=== PATIENT | female | born 1945 | race Hispanic/Latino ===

== ENCOUNTER 2019-01-06 10:16 | Emergency (ER) | payer MEDICARE ==
[2019-01-06 11:02] LABS: RAPID GROUP A STREP NEGATIVE (NEGATIVE)
== END 2019-01-06 11:31 | disposition home or self-care (01) ==
LOC: EDH 10:16
DX: J02.9 Acute pharyngitis, unspecified (principal); E78.5 Hyperlipidemia, unspecified; Z88.2 Allergy status to sulfonamides; Z96.649 Presence of unspecified artificial hip joint; Z72.0 Tobacco use
CPT/HCPCS: 71045; 87804; 87880

== ENCOUNTER 2019-01-11 12:57 | Inpatient (IN) | payer MEDICARE ==
[~2019-01-11] VITALS: Ht 139.7 cm; Wt 44.9 kg
[2019-01-11 13:35] LABS: BASOPHILS % (AUTO) 0.4 % (0.0-5.0); EOSINOPHILS % (AUTO) 1.9 % (0.0-8.0); HEMATOCRIT 32.1 % (36-48); LYMPHOCYTES % (AUTO) 9.9 % (21.0-51.0); MEAN CORPUSCULAR HEMOGLOBIN 25.9 pg (27.0-33.0); MEAN CORPUSCULAR HGB CONC 32.5 g/dL (32.0-36.0); MEAN CORPUSCULAR VOLUME 79.7 fL (79-99); MONOCYTES % (AUTO) 7.1 % (3.0-13.0); NEUTROPHILS % (AUTO) 80.7 % (40.0-77.0); NUCLEATED RED BLOOD CELLS 0.1 % (0.0-0.19); PLATELET COUNT (AUTO) 290 K/uL (130-400); RED BLOOD CELL COUNT(AUTO) 4.02 MIL/uL (4.00-5.50); RED CELL DISTRIBUTION WIDTH 14.6 % (11.0-15.5); WHITE BLOOD COUNT (AUTO) 5.9 K/uL (4.8-10.8)
[2019-01-11] MEDS ORDERED: HYDROCODONE/ACETAMINOPHEN 5/325 MG TAB ONE (13:38)
[2019-01-11 13:44] LABS: CREATININE 0.8 mg/dL (0.5-1.5); POTASSIUM 3.3 mmol/L (3.5-5.1)
[2019-01-11 13:45] LABS: INR 0.91 (0.85-1.15); PARTIAL THROMBOPLASTIN TIME 26.9 SEC (26.3-35.5); PROTHROMBIN TIME 9.6 SEC (9.6-11.6)
[2019-01-11 13:49] LABS: ALBUMIN 3.3 g/dL (3.5-5.0); BILIRUBIN,TOTAL 0.3 mg/dL (0.2-1.0)
[2019-01-11 14:11] LABS: CREATINE KINASE, TOTAL 77 U/L (21-232); MYOGLOBIN 26 ng/mL (10-92); TROPONIN I < 0.04 ng/mL (0.00-0.06)
[2019-01-11 14:24] LABS: APPEARANCE,URINE Cloudy (CLEAR); BILIRUBIN,URINE Negative (NEGATIVE); COLOR,URINE Yellow (YELLOW); GLUCOSE, URINE (UA) Negative (NEGATIVE); KETONES,URINE Negative (NEGATIVE); LEUKOCYTE ESTERASE ,URINE Moderate (NEGATIVE); NITRATE,URINE Negative (NEGATIVE); OCCULT BLOOD,URINE Small (NEGATIVE); PROTEIN,URINE POS 2+ (NEGATIVE)
[2019-01-11 14:29] LABS: BACTERIA,URINE Many /HPF (None Seen); RBC,URINE 0-1 /HPF (0-1); SQUAMOUS EPITHELIAL CELL,UR Rare /HPF (0-2)
[2019-01-11] MEDS: SODIUM CHLORIDE 0.9% 1000ML 1,000 ML IV SCH (15:12)
[2019-01-11] MEDS ORDERED: ACETAMINOPHEN 325 MG TAB PO PRN (15:15)
[2019-01-11] MEDS ORDERED: HYDRALAZINE HCL 20 MG/ML VIAL IV PRN (15:15)
[2019-01-11] MEDS ORDERED: ONDANSETRON HCL 4 MG/2 ML VIAL IV PRN (15:15)
[2019-01-11] MEDS ORDERED: SODIUM CHLORIDE 0.9% 1000ML 1,000 ML IV ONE (15:43)
[2019-01-11 15:51] LABS: % IRON SATURATION 4.9 % (22-44)
[2019-01-11] MEDS ORDERED: ONDANSETRON HCL 4 MG/2 ML VIAL ONE (15:51)
[2019-01-11] MEDS ORDERED: MORPHINE SULFATE 2 MG/ML 1ML SYG ONE (15:52)
[2019-01-11 17:16] VITALS: BP 148/74
[2019-01-11 17:17] VITALS: BP_SYST 128; BP_SYST 154; BP_DIAS 63; BP_DIAS 77
[2019-01-11 19:25] VITALS: BP 134/59
--- NOTE | 2019-01-11 20:30 | NUR ---
MD DR PENA IN TO SEE PT. NO NEW ORDERS GIVEN.
[2019-01-11] MEDS: FAMOTIDINE 20MG TAB 20 MG TAB PO SCH (21:19)
[2019-01-11] MEDS: ACETAMINOPHEN 325 MG TAB PO PRN (21:20)
--- NOTE | 2019-01-11 21:20 | NUR ---
MEDS DUE MEDS ADMINISTERED, TYLENOL PO GIVEN FOR BODY ACHES. PT TOLERATED MEDS WELL. KEPT RESTED AND COMFORTABLE IN BED WITH HOB ELEVATED. WILL RE-ASSESS PT. RE-ITERATED FALL PRECAUTIONS. CALL LIGHT WITHIN REACH.
[2019-01-12] VITALS (8 sets, daily range): BP systolic 141–172; BP diastolic 63–76
[2019-01-12] MEDS: SODIUM CHLORIDE 0.9% 1000ML 1,000 ML IV SCH ×4 (01:11→20:55)
--- NOTE | 2019-01-12 02:00 | NUR ---
ROUNDS PT FAIRLY ASLEEP WITH RESPIRATIONS EVEN AND UNLABORED. NO NOTED DISTRESS. KEPT UNDISTURBED FOR NOW. WILL CONTINUE TO MONITOR. CALL LIGHT WITHIN REACH.
--- NOTE | 2019-01-12 05:15 | NUR ---
ROUNDS PT IS ALREADY BACK TO SLEEP. NO DISTRESS NOTED. KEPT RESTED AND COMFORTABLE. FOR MORE CARE.
[2019-01-12] MEDS: MORPHINE SULFATE 2 MG/ML 1ML SYG IVP PRN ×2 (09:13→19:59)
[2019-01-12] MEDS: FAMOTIDINE 20MG TAB 20 MG TAB PO SCH (09:13)
[2019-01-12] MEDS: ENOXAPARIN SODIUM 40 MG/0.4 ML SYRINGE SQ SCH (09:14)
[2019-01-12] MEDS ORDERED: LEVETIRACETAM 500 MG TABLET PO ONE (10:58)
--- NOTE | 2019-01-12 11:04 | NUR ---
LAMOTRIGINE AND KEPPRA Patient received one tablet of her home supply of lamotrigine 150mg to administer as soon as possible and prevent seizure activity as discussed with Dr. Rg. She also had 1/2 tablet of a keppra 500mg tablet to receive 250mg as ordered by Dr. Rg.
[2019-01-12] MEDS: LEVETIRACETAM 250 MG TABLET PO SCH ×2 (11:45→19:58)
[2019-01-12] MEDS: LAMOTRIGINE 25 MG TAB PO SCH ×2 (11:45→19:58)
--- NOTE | 2019-01-12 13:51 | NUR ---
DCP CM met with pt discussed dc plans. Pt is semi-independent to assist w/ADL's, lives at home with sister Jeanie Hoover. Has a cane, shower chair, provider, sister is pt's provider. Denies any other equipments/services. Pt feels safe to go back home, sister able to assist with transportation and needs as necessary. DC plan to home once stable. CM to cont to follow up. Addendum: 01/12/19 at 1352 by KEVIN HIGGINS LVN CM Amended: Links added.
[2019-01-12] MEDS ORDERED: LEVOFLOXACIN 500 MG/D5W 100 ML 100 ML IV ONE (17:00)
[2019-01-12] MEDS: GUAIFENESIN-CODEINE 5 ML SYRUP PO PRN (17:05)
--- NOTE | 2019-01-12 17:15 | NUR ---
RESPIRATORY PCR Sample obtained and sent to lab.
[2019-01-12] MEDS ORDERED: ERGO500014 PO (17:42)
[2019-01-12] MEDS ORDERED: CYAN100099 PO (17:42)
[2019-01-12] MEDS ORDERED: FOLI1TAB15 PO (17:42)
[2019-01-12] MEDS ORDERED: LAMO150T5 PO (17:42)
[2019-01-12] MEDS ORDERED: ACYC400T PO (17:42)
[2019-01-12] MEDS ORDERED: SODIUM CHLORIDE 3% FOR INHALATION 4 ML/AMP VIAL.NEB IH ONE (19:31)
--- NOTE | 2019-01-12 20:00 | NUR ---
ASSESS PT COMPLAINTS OF PAIN ON HER BACK AFTER WALKING TO THE RESTROOM THEN BACK TO BED. RT WAS IN TO INDUCE TO COUGH OUT SPUTUM. DUE MEDS ADMINISTERED, TOLERATED WELL. MORPHINE GIVEN FOR PAINS. KEPT COMFORTABLE IN BED WITH HOB ELEVATED. RE-ITERATED FALL PRECAUTIONS. SPECIMEN BOTTLE PROVIDED FOR PT USE, INSTRUCTED PT AND SPUTUM COLLECTION. WILL RE-ASSESS PT. Addendum: 01/12/19 at 2225 by ADINA ROCHA RN RN Amended: Links added.
--- NOTE | 2019-01-12 22:00 | NUR ---
ROUNDS PT RESTING WELL. NO DISTRESS NOTED. KEPT RESTED AND COMFORTABLE. CALL LIGHT WITHIN REACH. WILL MONITOR PT. BED ALARM ON.
--- NOTE | 2019-01-12 22:55 | NUR ---
PAGED HAYDE BARRY CORE DRILLER HELPER FOR HOSPITALIST, MADE AWARE OF PT'S LOW POTASSIUM. NEW ORDERS GIVEN, PLEASE REFER TO CPOE. WILL MEDICATE AND MONITOR PT.
[2019-01-12] MEDS ORDERED: POTASSIUM CHLORIDE 10% ELIXIR 20 MEQ/15 ML UDCUP PO PRN (23:00)
[2019-01-12] MEDS ORDERED: LIDOCAINE HCL-MPF 1% 2ML VIAL IVP PRN (23:00)
[2019-01-12] MEDS ORDERED: POTASSIUM CHLORIDE 20MEQ/100ML 100 ML IV PRN (23:00)
[2019-01-12] MEDS: POTASSIUM CHLORIDE 20 MEQ ERTAB PO PRN (23:14)
[2019-01-13] MEDS: POTASSIUM CHLORIDE 20 MEQ ERTAB PO PRN ×2 (01:05→03:46)
--- NOTE | 2019-01-13 01:05 | NUR ---
MEDS AWAKENED PT FOR PO POTASSIUM, TOLERATED WELL. KEPT COMFORTABLE AND RESTED. CALL LIGHT WITHIN REACH. RE-ITERATED FALL PRECAUTIONS.
[2019-01-13 04:38] VITALS: BP 143/73
[2019-01-13 04:47] LABS: CREATININE 0.7 mg/dL (0.5-1.5); POTASSIUM 4.1 mmol/L (3.5-5.1)
[2019-01-13] MEDS: SODIUM CHLORIDE 0.9% 1000ML 1,000 ML IV SCH ×2 (05:23→16:21)
--- NOTE | 2019-01-13 05:48 | NUR ---
ROUNDS PT RESTING WELL. NO DISTRESS NOTED. KEPT RESTED AND COMFORTABLE. CALL LIGHT WITHIN REACH. FOR MORE CARE.
[2019-01-13 08:00] VITALS: BP 145/63
--- NOTE | 2019-01-13 08:00 | NUR ---
Aortic heart murmur Addendum: 01/13/19 at 1315 by JUANI MICHAELS RN RN Amended: Links added.
[2019-01-13] MEDS ORDERED: LAMOTRIGINE 150 MG PO SCH (09:00)
[2019-01-13] MEDS ORDERED: ERGOCALCIFEROL (VITAMIN D2) 50,000 UNIT CAPSULE PO SCH (09:00)
[2019-01-13] MEDS: LEVETIRACETAM 250 MG TABLET PO SCH ×2 (09:30→20:35)
[2019-01-13] MEDS: LAMOTRIGINE 25 MG TAB PO SCH ×2 (09:30→20:35)
[2019-01-13] MEDS: FAMOTIDINE 20MG TAB 20 MG TAB PO SCH (09:30)
[2019-01-13] MEDS: ENOXAPARIN SODIUM 40 MG/0.4 ML SYRINGE SQ SCH (09:31)
[2019-01-13] MEDS: CYANOCOBALAMIN (VITAMIN B-12) 1,000 MCG TABLET PO SCH ×2 (09:31→20:35)
[2019-01-13] MEDS: FOLIC ACID 1 MG TABLET PO SCH (09:31)
[2019-01-13] MEDS: ACETAMINOPHEN 325 MG TAB PO PRN (11:39)
--- NOTE | 2019-01-13 11:46 | NUR ---
CM Note: Víctor Cao pending ins auth and acceptance CM met with pt discussed MD patel for short term rehab, pt agreeable, ALBERTO signed for Víctor Cao. Faxed order, clinicals, pasrr. Spoke to Jessica bonner/[facility]íctor Cao, made aware pt pending PT eval and treat, will fax notes as soon as available. As per Jessica will come eval pt. Pt pending ins auth and acceptance. Primary nurse aware. CM to cont to follow up.
[2019-01-13 12:00] VITALS: BP 148/54
[2019-01-13 16:00] VITALS: BP 141/63
[2019-01-13] MEDS: LEVOFLOXACIN 250 MG/D5W 50ML 50 ML IVPB SCH (16:19)
[2019-01-13] MEDS: MORPHINE SULFATE 2 MG/ML 1ML SYG IVP PRN (19:27)
[2019-01-13 20:13] VITALS: BP 165/67
[2019-01-13 23:16] VITALS: BP 161/74
[2019-01-14] VITALS (8 sets, daily range): BP systolic 118–159; BP diastolic 58–74
[2019-01-14] MEDS: SODIUM CHLORIDE 0.9% 1000ML 1,000 ML IV SCH (04:38)
[2019-01-14 05:23] LABS: BASOPHILS % (AUTO) 1.1 % (0.0-5.0); EOSINOPHILS % (AUTO) 9.4 % (0.0-8.0); HEMATOCRIT 27.6 % (36-48); LYMPHOCYTES % (AUTO) 21.4 % (21.0-51.0); MEAN CORPUSCULAR HEMOGLOBIN 25.6 pg (27.0-33.0); MEAN CORPUSCULAR HGB CONC 32.2 g/dL (32.0-36.0); MEAN CORPUSCULAR VOLUME 79.4 fL (79-99); MONOCYTES % (AUTO) 10.2 % (3.0-13.0); NEUTROPHILS % (AUTO) 57.9 % (40.0-77.0); PLATELET COUNT (AUTO) 306 K/uL (130-400); RED BLOOD CELL COUNT(AUTO) 3.48 MIL/uL (4.00-5.50); RED CELL DISTRIBUTION WIDTH 15.2 % (11.0-15.5); WHITE BLOOD COUNT (AUTO) 4.1 K/uL (4.8-10.8)
[2019-01-14 05:29] LABS: CREATININE 0.8 mg/dL (0.5-1.5)
[2019-01-14] MEDS: MORPHINE SULFATE 2 MG/ML 1ML SYG IVP PRN ×2 (08:00→19:56)
--- NOTE | 2019-01-14 09:07 | NUR ---
CM Note: [facility] ins auth and acceptance Spoke to Jessica bonner/[facility], pt has ins auth and acceptance, pt may transfer via [facility] transport van. Pt currently pending Dr Plata consult for syncope w/abnormal 2decho, pending cardio clearance. Primary nurse aware. CM to cont to follow up.
[2019-01-14] MEDS: LAMOTRIGINE 25 MG TAB PO SCH ×2 (09:43→19:54)
[2019-01-14] MEDS: FOLIC ACID 1 MG TABLET PO SCH (09:43)
[2019-01-14] MEDS: LISINOPRIL 5 MG TABLET PO SCH (09:43)
[2019-01-14] MEDS: LEVETIRACETAM 250 MG TABLET PO SCH ×2 (09:44→19:55)
[2019-01-14] MEDS: FUROSEMIDE 20 MG TABLET PO SCH (09:44)
[2019-01-14] MEDS: FAMOTIDINE 20MG TAB 20 MG TAB PO SCH (09:44)
[2019-01-14] MEDS: CYANOCOBALAMIN (VITAMIN B-12) 1,000 MCG TABLET PO SCH ×2 (09:44→19:55)
[2019-01-14] MEDS: ENOXAPARIN SODIUM 40 MG/0.4 ML SYRINGE SQ SCH (09:45)
--- NOTE | 2019-01-14 11:31 | NUR ---
Yoni LOCK, with Heart clilnic in to see pt, orders entered, possible stress test in am, will re-evaluate pt. in am due to cough. Pt. to be NPO after midnight.
[2019-01-14] MEDS ORDERED: IPRATROPIUM/ALBUTEROL SULFATE 3 ML SOLUTION IH PRN (12:15)
[2019-01-14] MEDS ORDERED: METHYLPREDNISOLONE SOD SUCC 40MG/ML 1ML IVP SCH (12:15)
[2019-01-14] MEDS ORDERED: IOHEXOL-350 50ML VIAL IV ONE (14:36)
[2019-01-14] MEDS: GUAIFENESIN-CODEINE 5 ML SYRUP PO PRN (16:24)
[2019-01-14] MEDS: ACETAMINOPHEN 325 MG TAB PO PRN (16:26)
[2019-01-14] MEDS: LEVOFLOXACIN 250 MG/D5W 50ML 50 ML IVPB SCH (17:42)
[2019-01-14] MEDS: METOPROLOL TARTRATE 25 MG TAB PO SCH (19:59)
[2019-01-15 04:00] VITALS: BP 121/59
[2019-01-15 05:15] LABS: CHOLESTEROL 185 mg/dL (<200); HDL CHOLESTEROL 80 mg/dL (35-85); LDL DIRECT 99 mg/dL (0-99); TRIGLYCERIDES 75 mg/dL (30-200)
[2019-01-15] MEDS: MORPHINE SULFATE 2 MG/ML 1ML SYG IVP PRN ×2 (07:05→16:00)
[2019-01-15 08:09] VITALS: BP 134/86
[2019-01-15 08:26] VITALS: BP 124/55
[2019-01-15] MEDS ORDERED: PREDNISONE 20 MG TABLET PO SCH (09:00)
[2019-01-15] MEDS: LAMOTRIGINE 25 MG TAB PO SCH ×2 (09:51→20:02)
[2019-01-15] MEDS: FAMOTIDINE 20MG TAB 20 MG TAB PO SCH (09:52)
[2019-01-15] MEDS: LEVETIRACETAM 250 MG TABLET PO SCH ×2 (09:52→20:02)
[2019-01-15] MEDS: FUROSEMIDE 20 MG TABLET PO SCH (09:52)
[2019-01-15] MEDS: LISINOPRIL 5 MG TABLET PO SCH (09:52)
[2019-01-15] MEDS: CYANOCOBALAMIN (VITAMIN B-12) 1,000 MCG TABLET PO SCH ×2 (09:52→20:02)
[2019-01-15] MEDS: METOPROLOL TARTRATE 25 MG TAB PO SCH ×2 (09:52→20:02)
[2019-01-15] MEDS: ENOXAPARIN SODIUM 40 MG/0.4 ML SYRINGE SQ SCH (09:53)
[2019-01-15] MEDS: FOLIC ACID 1 MG TABLET PO SCH (10:02)
[2019-01-15 11:47] VITALS: BP 136/62
[2019-01-15] MEDS: LEVOFLOXACIN 250 MG/D5W 50ML 50 ML IVPB SCH (16:00)
[2019-01-15 16:09] VITALS: BP 111/56
--- NOTE | 2019-01-15 18:17 | NUR ---
REPORT CALLED TO [facility] AND SPOKE WITH BEBETO RHOADES. ALL QUESTIONS ANSWERED. MED REC AND CHART COPIED. BEBETO RHOADES STATED TO KEEP IV SITE IN WHICH WAS JUST STARTED 01/14/19 TO CONTINUE IV ANTIBIOTIC AT [facility].
[2019-01-15 20:03] VITALS: BP 138/66
--- NOTE | 2019-01-15 21:00 | NUR ---
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 Pt made aware I am just waiting for a call back from Víctor Higginbotham for time of fish bait picker.
--- NOTE | 2019-01-15 21:20 | NUR ---
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
== END 2019-01-15 21:15 | DRG 689 ==
LOC: EDH 12:57 → OBSVTOIN 15:12 → EDHIP 15:12 → 3BH 17:10
PROVIDERS: ADMIT Internal Medicine; ATTEND Internal Medicine
DX: N39.0 Urinary tract infection, site not specified (principal); I50.21 Acute systolic (congestive) heart failure; I95.1 Orthostatic hypotension; G40.909 Epilepsy, unspecified, not intractable, without status epilepticus; I35.1 Nonrheumatic aortic (valve) insufficiency; I44.0 Atrioventricular block, first degree; I44.7 Left bundle-branch block, unspecified; Z96.641 Presence of right artificial hip joint; I05.0 Rheumatic mitral stenosis; J32.0 Chronic maxillary sinusitis; J32.2 Chronic ethmoidal sinusitis; B96.4 Proteus (mirabilis) (morganii) as the cause of diseases classified elsewhere; W18.30XA Fall on same level, unspecified, initial encounter; Z82.49 Family history of ischemic heart disease and other diseases of the circulatory system; Z86.73 Personal history of transient ischemic attack (TIA), and cerebral infarction without residual deficits; Z87.891 Personal history of nicotine dependence; Z90.710 Acquired absence of both cervix and uterus; Z90.722 Acquired absence of ovaries, bilateral; Z88.2 Allergy status to sulfonamides; Y92.009 Unspecified place in unspecified non-institutional (private) residence as the place of occurrence of the external cause; Y99.8 Other external cause status; Y93.89 Activity, other specified
CPT/HCPCS: 36415; 70450; 70470; 71045; 72170; 80048; 80053; 80061; 81001; 82550; 83540; 83550; 83874; 83880; 84443; 84484; 85025; 85610; 85730; 87071; 87077; 87088; 87186; 87205; 87486; 87581; 87633; 87798; 93005; 93306; 93880; 94640; 94664; 97039; G0378; J0360; J1650; J1956; J2405; J2920; J7030; Q9967

== ENCOUNTER 2021-11-11 09:58 | Emergency (ER) | payer MEDICARE ==
[~2021-11-11] VITALS: Ht 147.3 cm; Wt 38.1 kg
[~2021-11-11 09:58] MED LIST: ACYC400T20 PO; CYAN100099 PO; ERGO500014 PO; FOLI1TAB15 PO; LAMO150T6 PO
[2021-11-11 11:30] LABS: BASOPHILS % (AUTO) 0.9 % (0.0-5.0); HEMATOCRIT 38.2 % (36-48); LYMPHOCYTES % (AUTO) 16.8 % (21.0-51.0); MEAN CORPUSCULAR HEMOGLOBIN 29.9 pg (27.0-33.0); MEAN CORPUSCULAR HGB CONC 32.2 g/dL (32.0-36.0); MEAN CORPUSCULAR VOLUME 92.7 fL (79-99); MONOCYTES % (AUTO) 8.2 % (3.0-13.0); NEUTROPHILS % (AUTO) 65.7 % (40.0-77.0); PLATELET COUNT (AUTO) 272 K/uL (130-400); RED BLOOD CELL COUNT(AUTO) 4.12 MIL/uL (4.00-5.50); RED CELL DISTRIBUTION WIDTH 12.8 % (11.0-15.5); WHITE BLOOD COUNT (AUTO) 5.6 K/uL (4.8-10.8)
[2021-11-11 11:49] LABS: CREATININE 1.2 mg/dL (0.5-1.5); POTASSIUM 3.9 mmol/L (3.5-5.1)
[2021-11-11 11:58] LABS: BILIRUBIN,TOTAL 0.2 mg/dL (0.2-1.0); TOTAL PROTEIN, SERUM 7.8 g/dL (6.0-8.3)
[2021-11-11 12:45] LABS: APPEARANCE,URINE Clear (CLEAR); BILIRUBIN,URINE Negative (NEGATIVE); COLOR,URINE Yellow (YELLOW); GLUCOSE, URINE (UA) Negative (NEGATIVE); KETONES,URINE Negative (NEGATIVE); LEUKOCYTE ESTERASE ,URINE Moderate (NEGATIVE); NITRATE,URINE Positive (NEGATIVE); OCCULT BLOOD,URINE Trace (NEGATIVE); PROTEIN,URINE Negative (NEGATIVE); UROBILINOGEN,URINE 0.2 mg/dL (0.2-1.0)
[2021-11-11 12:58] LABS: BACTERIA,URINE Many /HPF (None Seen); RBC,URINE 0-1 /HPF (0-1); SQUAMOUS EPITHELIAL CELL,UR Rare /HPF (0-2); WBC,URINE 0-1 /HPF (0-1)
[2021-11-11] MEDS ORDERED: MACR100 PO (13:10)
[2021-11-11 13:42] VITALS: BP 113/47
== END 2021-11-11 13:42 | disposition home or self-care (01) ==
LOC: EDH 09:58
DX: N39.0 Urinary tract infection, site not specified (principal); R10.13 Epigastric pain; Z20.822 Contact with and (suspected) exposure to COVID-19; Z88.2 Allergy status to sulfonamides
CPT/HCPCS: 36415; 71045; 80053; 81001; 84484; 85025; 86900; 86901; 87077; 87088; 87186; 87635; 87804 ×2; 93005; 99285; C9803

== ENCOUNTER → 2021-11-27 | Outpatient (CLI) | payer MEDICARE ==
[~2021-11-27] MED LIST changes: +MACR100 PO
== END | disposition home or self-care (01) ==
LOC: RAH 09:44
PROVIDERS: ATTEND Internal Medicine Gastroenterology
DX: K31.84 Gastroparesis (principal); K30 Functional dyspepsia; Z90.49 Acquired absence of other specified parts of digestive tract
CPT/HCPCS: 76700; 78264; A9541

== ENCOUNTER → 2022-08-01 | Outpatient (CLI) | payer MEDICARE, MEDICAID | END | disposition home or self-care (01) | LOC: RAH 14:10 | PROVIDERS: ATTEND Internal Medicine | DX: R10.9 Unspecified abdominal pain (principal); Z90.49 Acquired absence of other specified parts of digestive tract | CPT/HCPCS: 74018 ==

== ENCOUNTER 2022-11-12 10:24 | Emergency (ER) | payer MEDICARE, MEDICAID ==
[~2022-11-12] VITALS: Ht 121.9 cm; Wt 44.0 kg
[2022-11-12 10:43] VITALS: BP 144/57
[2022-11-12] MEDS ORDERED: GUAIF10 PO (11:38)
[2022-11-12] MEDS ORDERED: ACET-66 PO (11:38)
== END 2022-11-12 11:50 | disposition home or self-care (01) ==
LOC: EDH 10:24
DX: U07.1 COVID-19 (principal); I10 Essential (primary) hypertension; F03.90 Unspecified dementia, unspecified severity, without behavioral disturbance, psychotic disturbance, mood disturbance, and anxiety; E78.00 Pure hypercholesterolemia, unspecified; K21.9 Gastro-esophageal reflux disease without esophagitis; Z79.899 Other long term (current) drug therapy; Z88.2 Allergy status to sulfonamides
CPT/HCPCS: 99284; 87804 ×2; 87635; 71045; C9803

== ENCOUNTER → 2023-04-30 | Outpatient (CLI) | payer OTHER, MEDICARE ==
[~2023-04-30] MED LIST changes: +ACET-66 PO; +GUAIF10 PO
== END | disposition home or self-care (01) ==
LOC: RAH 16:19
PROVIDERS: ATTEND Internal Medicine
DX: M25.521 Pain in right elbow (principal); M25.531 Pain in right wrist
CPT/HCPCS: 73070; 73100